=== PATIENT | female | born 1965 | race American Indian/Alaskan Native ===

== ENCOUNTER 2021-07-16 10:14 | Outpatient (CLI) | payer OTHER ==
[2021-07-16 10:47] LABS: Hematocrit 35.4 % (30.3-42.9); Hemoglobin 11.1 gm/dl (10.1-14.3)
== END 2021-07-16 10:15 | disposition home or self-care (01) ==
LOC: LAB 10:14
PROVIDERS: ATTEND Internal Medicine
DX: Z02.71 Encounter for disability determination (principal); I10 Essential (primary) hypertension; E11.9 Type 2 diabetes mellitus without complications; M19.042 Primary osteoarthritis, left hand; M19.041 Primary osteoarthritis, right hand; E11.40 Type 2 diabetes mellitus with diabetic neuropathy, unspecified
CPT/HCPCS: 36415; 85014; 85018